=== PATIENT | female | born 1995 | race Caucasian/White ===

== ENCOUNTER 2017-04-17 10:40 | Inpatient (IN) | payer SELFPAY ==
[~2017-04-17] VITALS: Ht 152.4 cm; Wt 54.5 kg
[2017-04-17] MEDS ORDERED: LACTATED RINGER'S 1,000 ML IV SCH (11:09)
[2017-04-17 11:14] VITALS: Ht 152.4 cm; Wt 54.5 kg
[2017-04-17 11:15] VITALS: BP 109/72; PULSE 85; RESP 18
[2017-04-17] MEDS ORDERED: METHYLERGONOVINE 0.2 MG INJ IM PRN ×2 (11:30→14:30)
[2017-04-17] MEDS ORDERED: OXYTOCIN 30 UNITS/LR 500 ML IV PRN ×2 (11:30→14:30)
[2017-04-17] MEDS ORDERED: CARBOPROST 250 MCG INJ IM PRN ×2 (11:30→14:30)
[2017-04-17] MEDS ORDERED: MISOPROSTOL 200 MCG TAB PR PRN ×2 (11:30→14:30)
[2017-04-17] MEDS ORDERED: IBUPROFEN 600 MG TAB PO PRN (11:30)
[2017-04-17] MEDS ORDERED: OXYTOCIN 30 UNITS/LR 500 ML IV SCH ×2 (11:30)
[2017-04-17 11:35] LABS: BASOPHILS % 0.2 % (0.0-2.0); EOSINOPHILS # 0.1 10^3/ul (0.0-0.5); EOSINOPHILS % 1.3 % (0.0-7.0); HEMATOCRIT 37.5 % (37.0-47.0); HEMOGLOBIN 12.1 g/dl (12.0-16.0); LYMPHOCYTES # 3.4 10^3/ul (0.8-2.9); LYMPHOCYTES % 36.2 % (15.0-51.0); MEAN CORPUSCULAR HGB CONC 32.3 g/dl (32.0-37.0); MEAN CORPUSCULAR VOLUME 86.8 fl (82.0-101.0); MEAN PLATELET VOLUME 10.9 fl (7.4-10.4); MONOCYTE # 0.7 10^3/ul (0.3-0.9); NEUTROPHILS % 53.9 % (39.0-77.0); PLATELET COUNT 299 10^3/UL (140-415); RED BLOOD COUNT 4.32 10^6/ul (4.20-5.40); RED CELL DISTRIBUTION WIDTH 15.2 % (11.5-14.5); WHITE BLOOD COUNT 9.3 10^3/ul (4.8-10.8)
[2017-04-17 11:55] LABS: INR 0.97; PROTIME 12.9 Sec (12.2-14.2)
[2017-04-17 11:57] LABS: PARTIAL THROMBOPLASTIN TIME 27.5 Sec (25.0-35.0)
[2017-04-17 13:45] VITALS: BP 103/61; PULSE 77; RESP 16
--- NOTE | 2017-04-17 13:54 | LDN ---
Date/Time of Note Date/Time of Note DATE: 04/17/17 TIME: 13:46 Delivery Summary 21 y.o upon arrival delivery was imminent Weeks of Gestation 33w5d Placenta Delivered: Spontaneously Meconium: none Episiotomy: No Perineal laceration: 0 Anesthesia type: None Estimated blood loss: 200 Sponge & Needle done & correct: Yes All needle counts correct: Yes Any foreign bodies felt in the: No Problems: Delivery Information Sex Sex: female Apgars 1 Minute: 9 5 Minute: 9 Suctioning Nose & mouth suctioned at robin: Yes Delee suction performed: No Umbilical Cord Umbilical cord with: 3 Vessels Cord presentations: nuchal cord Cord Blood was obtained: Yes Mother & Baby Disposition Disposition Mom & Baby to Maternity; Good: Yes Mom transferred to: Other Baby to NICU: No FAROOQ GORDILLO MD Apr 17, 2017 13:54
[2017-04-17 14:01] LABS: CANNABINOIDS Negative (NEGATIVE)
--- NOTE | 2017-04-17 14:01 | HP ---
Date/Time of Note Date/Time of Note DATE: 04/17/17 TIME: 13:54 OB - History Hx of Present Free Text/Dictation 21 y.o at triage in active labor with delivery was imminent with bulging bag admitted for expectant management Chief Complaint: labor Estimated Due Date: May 31, 2017 : 2 Para: 1 Spontaneous : 0 Therapeutic : 0 Care: Other Ultrasounds: Other Obstetrical Complications: None Medical Complications: None Past Family/Social History * Past Medical, Surgical, Family and Obstetric Histories reviewed from chart. Blood Type: O+ Rubella: unknown RPR/VDRL: Unknown GBS Status: Unknown HBsAG: Negative OB Admission Exam Vital Signs Vital Signs Vital Signs Date Time Temp Pulse Resp B/P Pulse Ox O2 Delivery O2 Flow Rate FiO2 04/17/17 11:15 98.0 85 18 109/72 Room Air Physical Exam HEENT: WNL Heart: Rhythm Normal Lungs: Clear, Equal Abdomen: WNL Extremities: Normal Reflexes: Normal Cervical Dilatation: 10cm Effacement: 100% Station: +1 Membranes: Intact Amniotic Fluid: Unevaluable Heart Rate: 140's Accelerations: Accelerations Present Decelerations: No Decelerations Varibility: Moderate Contractions on Admission: < 5 Minutes Apart Intensity: Firm Last 72 hours Lab Results CBC & BMP 04/17/17 10:20 OB Assessment/Plan Reason for admission: active labor Other Assessment: IUP 33w5d Plan: Other (immediate delivery) FAROOQ GORDILLO MD Apr 17, 2017 14:01
[2017-04-17] MEDS: OXYTOCIN 30 UNITS/LR 500 ML IV SCH ×2 (14:05→18:02)
[2017-04-17 14:29] LABS: BARBITURATES Negative (NEGATIVE); BENZODIAZEPINES Negative (NEGATIVE); COCAINE Negative (NEGATIVE); OPIATES Negative (NEGATIVE)
[2017-04-17] MEDS ORDERED: LANOLIN 7 GM TUBE TOP PRN (14:30)
[2017-04-17] MEDS ORDERED: OXYCODONE/ASPIRIN (4.88/325) TAB PO PRN (14:30)
[2017-04-17] MEDS ORDERED: WITCH HAZEL/GLYCERIN PAD PR PRN (14:30)
[2017-04-17] MEDS ORDERED: BENZOCAINE 20% 56 ML SPRAY TOP PRN (14:30)
[2017-04-17] MEDS ORDERED: ZOLPIDEM 5 MG TAB PO PRN (14:30)
[2017-04-17 16:15] VITALS: BP 112/63; PULSE 92; RESP 17
[2017-04-17] MEDS: OXYCODONE/ASPIRIN (4.88/325) TAB PO PRN (17:18)
[2017-04-17] MEDS: IBUPROFEN 600 MG TAB PO SCH ×2 (18:12→23:38)
[2017-04-17 20:30] VITALS: BP 104/55; PULSE 78; RESP 19
[2017-04-17] MEDS: SENNA/DOCUSATE NA (8.6MG/50MG) TAB PO SCH (21:12)
[2017-04-18 04:38] VITALS: BP 96/54; PULSE 72; RESP 18
[2017-04-18] MEDS: IBUPROFEN 600 MG TAB PO SCH ×3 (06:25→17:40)
[2017-04-18 07:21] LABS: BASOPHILS % 0.2 % (0.0-2.0); EOSINOPHILS # 0.2 10^3/ul (0.0-0.5); EOSINOPHILS % 1.6 % (0.0-7.0); HEMATOCRIT 31.7 % (37.0-47.0); LYMPHOCYTES # 3.7 10^3/ul (0.8-2.9); LYMPHOCYTES % 29.5 % (15.0-51.0); MEAN CORPUSCULAR HEMOGLOBIN 27.2 pg (29.0-33.0); MEAN CORPUSCULAR HGB CONC 31.5 g/dl (32.0-37.0); MEAN CORPUSCULAR VOLUME 86.1 fl (82.0-101.0); MEAN PLATELET VOLUME 10.7 fl (7.4-10.4); MONOCYTE # 1.1 10^3/ul (0.3-0.9); MONOCYTES % 8.4 % (0.0-11.0); NEUTROPHIL # 7.6 10^3/ul (1.6-7.5); NEUTROPHILS % 59.9 % (39.0-77.0); PLATELET COUNT 257 10^3/UL (140-415); RED BLOOD COUNT 3.68 10^6/ul (4.20-5.40); RED CELL DISTRIBUTION WIDTH 15.6 % (11.5-14.5); WHITE BLOOD COUNT 12.6 10^3/ul (4.8-10.8)
[2017-04-18 07:40] VITALS: BP 106/60; PULSE 79; RESP 19
[2017-04-18] MEDS: SENNA/DOCUSATE NA (8.6MG/50MG) TAB PO SCH (09:23)
[2017-04-18] MEDS: OXYCODONE/ASPIRIN (4.88/325) TAB PO PRN (10:25)
--- NOTE | 2017-04-18 11:33 | PN ---
Date/Time of Note Date/Time of Note DATE: 04/18/17 TIME: 11:30 OB Subjective Subjective Subjective c/o mild cramps urination ok OB Objective Objective Objective vss afebrile fundus firm lochia min calf neg for tenderness OB Assessment/Plan Other Assessment: stable post normal delivery#1 Other plan: d/s home in am FAROOQ GORDILLO MD Apr 18, 2017 11:33
[2017-04-18 16:20] VITALS: BP 111/58; PULSE 74; RESP 16
[2017-04-18] MEDS ORDERED: INFLUENZA VIRUS VACCINE 0.5 ML SYG IM* ONE (16:30)
[2017-04-19] MEDS ORDERED: DIPHTH/TET/ACEL PERTUSS (ADULT) 0.5 ML VIAL IM* ONE (09:00)
[2017-04-20 13:42] LABS: RUBELLA ANTIBODY - IGG 1.25 index
== END 2017-04-18 20:25 | disposition home or self-care (01) | DRG 775 ==
LOC: L-D 10:40 → PP1 13:54
PROVIDERS: ADMIT Obstetrics & Gynecology; ATTEND Obstetrics & Gynecology
PROC: 10E0XZZ Delivery of Products of Conception, External Approach (ICD-10-PCS; principal; 2017-04-17)
DX: O60.14X0 Preterm labor third trimester with preterm delivery third trimester, not applicable or unspecified (principal); O69.81X0 Labor and delivery complicated by cord around neck, without compression, not applicable or unspecified; Z3A.33 33 weeks gestation of pregnancy; Z37.0 Single live birth
CPT/HCPCS: 80307; 85025; 85610; 85730; 86592; 86703; 86762; 86900; 86901; 87340; 90686; 99464; J2590; J7120